=== PATIENT | female | born 1985 | race Caucasian/White ===

== ENCOUNTER 2018-07-02 21:21 | Inpatient (IN) | payer OTHER ==
[~2018-07-02] VITALS: Ht 172.7 cm; Wt 81.6 kg
[~2018-07-02 21:21] MED LIST: ACETAMINOPHEN 500 MG TABLET PO ONE; CITRIC ACID/SODIUM CITRATE 30 ML SOLUTION UDCUP PO PRN; LIDOCAINE/PF 1% 30 ML VIAL INJ PRN; METOCLOPRAMIDE HCL 5 MG/ML 2 ML VIAL IVP PRN; OXYTOCIN 30 UNITS/LACT RINGERS 500 ML IV ONE; RINGERS SOLUTION,LACTATED 1,000 ML IV PRN
[2018-07-02 21:45] LABS: BASOPHILS % (AUTO) 0.8 % (0.0-2.0); EOSINOPHILS % (AUTO) 0.8 % (1.0-6.0); HEMATOCRIT 29.8 % (36-46); HEMOGLOBIN 10.1 g/dL (12.0-16.0); LYMPHOCYTES # (AUTO) 1.1 K/uL (1.0-4.8); LYMPHOCYTES % (AUTO) 20.3 % (22.0-44.0); MEAN CORPUSCULAR HEMOGLOBIN 31.4 pg (26.0-34.0); MEAN CORPUSCULAR HGB CONC 33.9 G/dL (31.0-37.0); MEAN CORPUSCULAR VOLUME 93 fL (80-100); MONOCYTES # (AUTO) 0.5 K/uL (0.1-1.0); MONOCYTES % (AUTO) 8.9 % (2.0-9.0); NEUTROPHILS # (AUTO) 3.7 K/uL (1.8-7.7); NEUTROPHILS % (AUTO) 69.2 % (40.0-70.0); PLATELET COUNT (AUTO) 150 K/uL (150-450); RED BLOOD CELL COUNT(AUTO) 3.22 MIL/uL (4.00-5.20); RED CELL DISTRIBUTION WIDTH 13.5 % (11.5-14.5)
[2018-07-02 21:54] LABS: ANION GAP 11 mmol/L (8-16); CALCIUM, TOTAL 9.1 mg/dL (8.8-10.5); CARBON DIOXIDE 23 mmol/L (22-29); CHLORIDE 100 mmol/L (98-107); CREATININE 0.98 mg/dL (0.60-1.30); GLOMERULAR FILTR. RATE CALC > 60 mL/min (>60); GLUCOSE,RANDOM 79 mg/dL (70-110); SODIUM SERUM 134 mmol/L (136-145); UREA NITROGEN, BLOOD 14 mg/dL (7-18)
[2018-07-02 21:59] LABS: ALANINE AMINOTRANSFERASE 509 U/L (12-78); ALBUMIN 2.2 g/dL (3.4-5.0); ALKALINE PHOSPHATASE 224 U/L (46-116); ASPARTATE AMINOTRANSFERASE 193 U/L (15-37); TOTAL PROTEIN, SERUM 6.5 g/dL (6.4-8.2)
[2018-07-02] MEDS: BETAMETHASONE SOLUSPAN 6 MG/ML 5 ML VIAL IM SCH (22:16)
[2018-07-02 22:25] LABS: URIC ACID 4.8 mg/dL (2.6-7.2)
[2018-07-02] MEDS: RINGERS SOLUTION,LACTATED 1,000 ML IV SCH (22:59)
[2018-07-02] MEDS: MISOPROSTOL 25 MCG TABLET PO SCH (22:59)
[2018-07-02 23:35] VITALS: BP 124/79
[2018-07-02] MEDS ORDERED: PREN1TAB26 PO (23:41)
[2018-07-02] MEDS ORDERED: PROP10TA73 PO (23:41)
[2018-07-02] MEDS ORDERED: DIPH25 PO (23:41)
[2018-07-03] MEDS: MISOPROSTOL 25 MCG TABLET PO SCH ×2 (03:18→07:51)
[2018-07-03] MEDS: RINGERS SOLUTION,LACTATED 1,000 ML IV SCH ×4 (03:34→20:25)
[2018-07-03] MEDS ORDERED: OXYGEN THERAPY IH SCH (08:00)
[2018-07-03] MEDS: FentaNYL CITRATE-PF 100 MCG/2 ML VIAL IVP PRN ×2 (09:22→09:29)
[2018-07-03] MEDS: BETAMETHASONE SOLUSPAN 6 MG/ML 5 ML VIAL IM SCH (10:30)
[2018-07-03] MEDS ORDERED: ROPIVACAINE HCL/PF 0.2% 100 ML ED ONE ×2 (10:43→23:38)
[2018-07-03] MEDS ORDERED: ONDANSETRON HCL 4 MG/2 ML VIAL IVP PRN (11:15)
[2018-07-03] MEDS ORDERED: DiphenhydrAMINE HCL 50 MG/ML VIAL IVP PRN (11:15)
[2018-07-03] MEDS ORDERED: ROPIVACAINE HCL/PF 0.2% 100 ML ED PRN (11:15)
[2018-07-03] MEDS ORDERED: OXYTOCIN 30 UNITS/LACT RINGERS 500 ML IV PRN (11:42)
[2018-07-03] MEDS ORDERED: AMPICILLIN SODIUM 2 GM/NS 100 ML IV ONE (17:15)
[2018-07-03] MEDS: AMPICILLIN SODIUM 1 GM/NS 50 ML IV SCH (21:29)
[2018-07-03] MEDS ORDERED: FentaNYL CITRATE-PF 100 MCG/2 ML VIAL ONE (23:38)
[2018-07-03] MEDS ORDERED: FentaNYL CITRATE-PF 100 MCG/2 ML VIAL IVP ONE (23:45)
[2018-07-04] MEDS: RINGERS SOLUTION,LACTATED 1,000 ML IV SCH (00:58)
[2018-07-04] MEDS: AMPICILLIN SODIUM 1 GM/NS 50 ML IV SCH (01:04)
[2018-07-04] MEDS ORDERED: MISOPROSTOL 100 MCG TABLET ONE (04:18)
[2018-07-04] MEDS ORDERED: MISOPROSTOL 100 MCG TABLET PR ONE (04:45)
[2018-07-04] MEDS ORDERED: OXYTOCIN 30 UNITS/LACT RINGERS 500 ML IV ONE (06:05)
[2018-07-04] MEDS ORDERED: BENZOCAINE 20%/MENTHOL 56 GM SPRAY CANISTER TP PRN (06:15)
[2018-07-04] MEDS ORDERED: LANOLIN 7 GM OINTMENT TP PRN (06:15)
[2018-07-04] MEDS ORDERED: GLYCERIN/WITCH HAZEL LEAF 40 PADS JAR TP PRN (06:15)
[2018-07-04] MEDS ORDERED: OxyCODONE HCL/ACETAMINOPHEN 5-325 MG TABLET PO PRN (06:15)
[2018-07-04] MEDS ORDERED: DiphenhydrAMINE HCL 50 MG/ML VIAL IVP PRN (06:45)
[2018-07-04] MEDS: OxyCODONE HCL/ACETAMINOPHEN 5-325 MG TABLET PO PRN ×3 (08:14→20:34)
[2018-07-04] MEDS: IBUPROFEN 800 MG TABLET PO PRN ×3 (08:15→20:34)
[2018-07-04] MEDS: MAGNESIUM HYDROXIDE SUSPENSION 30 ML UDCUP PO PRN (20:34)
[2018-07-04] MEDS: DiphenhydrAMINE HCL 25 MG CAPSULE PO PRN (22:10)
[2018-07-05 06:33] LABS: BASOPHILS % (AUTO) 0.2 % (0.0-2.0); EOSINOPHILS % (AUTO) 1.2 % (1.0-6.0); HEMATOCRIT 26.5 % (36-46); LYMPHOCYTES # (AUTO) 1.7 K/uL (1.0-4.8); LYMPHOCYTES % (AUTO) 12.7 % (22.0-44.0); MEAN CORPUSCULAR HEMOGLOBIN 31.7 pg (26.0-34.0); MEAN CORPUSCULAR HGB CONC 34.1 G/dL (31.0-37.0); MEAN CORPUSCULAR VOLUME 93 fL (80-100); MONOCYTES # (AUTO) 1.1 K/uL (0.1-1.0); MONOCYTES % (AUTO) 8.3 % (2.0-9.0); NEUTROPHILS # (AUTO) 10.4 K/uL (1.8-7.7); NEUTROPHILS % (AUTO) 77.6 % (40.0-70.0); PLATELET COUNT (AUTO)-OB 142 K/uL (150-450); RED BLOOD CELL COUNT(AUTO) 2.85 MIL/uL (4.00-5.20)
[2018-07-05] MEDS: IBUPROFEN 800 MG TABLET PO PRN (08:39)
[2018-07-05] MEDS: DiphenhydrAMINE HCL 25 MG CAPSULE PO PRN (08:40)
[2018-07-05] MEDS: MAGNESIUM HYDROXIDE SUSPENSION 30 ML UDCUP PO PRN (08:40)
[2018-07-05] MEDS ORDERED: SENNA/DOCUSATE SODIUM 8.6-50 MG TABLET PO ONE (11:30)
[2018-07-05] MEDS ORDERED: IBUP-2071 PO (11:39)
== END 2018-07-05 13:30 | disposition home or self-care (01) | DRG 805 ==
LOC: 4S 21:21 → OBSVTOIN 21:21
PROVIDERS: ADMIT Obstetrics & Gynecology; ATTEND Obstetrics & Gynecology
PROC: 10D07Z6 Extraction of Products of Conception, Vacuum, Via Natural or Artificial Opening (ICD-10-PCS; principal; 2018-07-04)
PROC: 0HQ9XZZ Repair Perineum Skin, External Approach (ICD-10-PCS; 2018-07-04)
PROC: 3E0R3BZ Introduction of Anesthetic Agent into Spinal Canal, Percutaneous Approach (ICD-10-PCS; 2018-07-04)
PROC: 00HU33Z Insertion of Infusion Device into Spinal Canal, Percutaneous Approach (ICD-10-PCS; 2018-07-04)
DX: O69.81X0 Labor and delivery complicated by cord around neck, without compression, not applicable or unspecified (principal); K83.1 Obstruction of bile duct; Z37.0 Single live birth; O26.62 Liver and biliary tract disorders in childbirth; O77.0 Labor and delivery complicated by meconium in amniotic fluid; O70.0 First degree perineal laceration during delivery; Z3A.36 36 weeks gestation of pregnancy
CPT/HCPCS: 84550; 86850; 86900; 86901; J0290; J0702; J1200; J2590; J2795; J3010; J7120